=== PATIENT | male | born 1945 | race Caucasian/White ===

== ENCOUNTER 2024-04-10 16:25 | Emergency (ER) | payer OTHER ==
[~2024-04-10] VITALS: Ht 182.9 cm; Wt 100.0 kg
[2024-04-10] MEDS: ONDANSETRON ODT 4 MG TAB PO ONE (19:10)
[2024-04-10] MEDS: MORPHINE SULFATE INJ 2 MG/ml SYRG IM ONE (19:10)
[2024-04-10 19:47] VITALS: BP 170/86; PULSE 69; RESP 17; TEMP 97.7; O2SAT 96
[2024-04-10] MEDS ORDERED: ACE3T PO (19:50)
== END 2024-04-10 20:34 | disposition home or self-care (01) ==
LOC: EDBD 16:25 → ER 16:25
DX: S29.012A Strain of muscle and tendon of back wall of thorax, initial encounter (principal); I10 Essential (primary) hypertension; Z88.2 Allergy status to sulfonamides; V49.9XXA Car occupant (driver) (passenger) injured in unspecified traffic accident, initial encounter; Y93.89 Activity, other specified; Y92.488 Other paved roadways as the place of occurrence of the external cause; Y99.8 Other external cause status
CPT/HCPCS: 72128; 96372; 99285; J2270; Q0162; 93005

== ENCOUNTER 2025-01-18 15:40 | Emergency (ER) | payer OTHER ==
[~2025-01-18] VITALS: Ht 167.6 cm; Wt 91.0 kg
[~2025-01-18 15:40] MED LIST: ACE3T PO
--- NOTE | 2025-01-18 15:50 | ED.PDOC ---
HPI Comments 79-year-old male with PMHx HTN, Arthritis brought in by EMS presents with a chief complaint of chest pain. Patient states that his pain is localized to his left chest region, nonradiating, describes sharp, and is intermittent in timing. Patient mentions that he felt this pain 3 times yesterday, but it subsided on its own. Patient denies having any known cardiac history including Angina or MD. No other symptoms or modifying factors present at this time. Patient currently denies any specific chest pain. Chief Complaint: Chest Pain Time Seen by MD: 15:44 Primary Care Provider: ANA PAULA Wallace Notes: Grocery Department Manager Notes, Medications, Allergies Allergies: Coded Allergies: Sulfa Antibiotics (Verified Allergy, Unknown, 04/10/24) Home Meds Active Scripts Acetaminophen W/ Codeine (Tylenol W/Cod #3) 1 Tab Tb, 1 TAB PO Q6HPRN, #10 TAB 0 Refills Prov:AGUILARCLAYTON WALTER 04/10/24 Information Source: Patient, Emergency Med Personnel Mode of Arrival: EMS Severity: Moderate Timing: Days Duration: Intermittent Prehospital treatment: 12 Lead EKG, Hot Car Charger Location: Chest (L) Radiation: No Radiation Quality: Sharp Onset: At Rest Cardiac Risk Factors: HTN PE Risk Factors: None History of: Similar pain in past Past Medical History PAST MEDICAL HISTORY: Arthritis, HTN Surgical History: Denies all surgeries Family History Family History: Reviewed,noncontributory to illness Social History Smoker: Non-Smoker Alcohol: Occasionally Drugs: Denies Drug Use Lives In: Home Constitutional: denies: chills, diaphoresis, fatigue, fever, malaise, sweats, weakness, others EENTM: denies: blurred vision, double vision, ear bleeding, ear discharge, ear drainage, ear pain, ear ringing, eye pain, eye redness, hearing loss, mouth pain, mouth swelling, nasal discharge, nose bleeding, nose congestion, nose pain, photophobia, tearing, throat pain, throat swelling, voice changes, others Respiratory: denies: cough, hemoptysis, orthopnea, SOB at rest, shortness of breath, SOB with excertion, stridor, wheezing, others Cardiovascular: reports: chest pain; denies: dizzy spells, diaphoresis, Dyspnea on exertion, edema, irregular heart beat, left arm pain, lightheadedness, palpitations, PND, syncope, others Gastrointestinal: denies: abdomen distended, abdominal pain, blood streaked bowels, constipated, diarrhea, dysphagia, difficulty swallowing, hematemesis, melena, nausea, poor appetite, poor fluid intake, rectal bleeding, rectal pain, vomiting, others Genitourinary: denies: burning, dysuria, flank pain, frequency, hematuria, i ncontinence, penile discharge, penile sore, pain, testicle pain, testicle swelling, urgency, others Neurological: denies: dizziness, fainting, headache, left sided numbness, left sided weakness, numbness, paresthesia, pre-existing deficit, right sided numbness, right sided weakness, seizure, speech problems, tingling, tremors, weakness, others Musculoskeletal: denies: back pain, gout, joint pain, joint swelling, muscle pain, muscle stiffness, neck pain, others Integumetry: denies: bruises, change in color, change in hair/nails, dryness, laceration, lesions, lumps, rash, wounds, others Allergic/Immunocompromised: denies: Difficulty Healing, Frequent Infections, Hives, Itching, others Hematologic/Lymphatic: denies: anemia, blood clots, easy bleeding, easy bruising, swollen glands, others Endocrine: denies: excessive hunger, excessive sweating, excessive thirst, excessive urination, flushing, intolerance to cold, intolerance to heat, unexplained weight gain, unexplained weight loss, others Psychiatric: denies: anxiety, bipolar disorder, depression, hopeless, panic disorder, schizophrenia, sleepless, suicidal, others All Other Systems: Reviewed and Negative Physical Exam General Appearance: No Apparent Distress (Patient was in no definitive distress at time of evaluation.), Normal HEENT: Normal ENT Inspection, Pharynx Normal, TMs Normal Neck: Full Range of Motion, Non-Tender, Normal, Normal Inspection Respiratory: Chest Non-Tender, Lungs Clear, No Accessory Muscle Use, No Respiratory Distress, Normal Breath Sounds Cardiovascular: No Edema, No JVD, No Murmur, No Gallop, Normal Peripheral Pulses, Regular Rate/Rhythm Breast Exam: Deferred Gastrointestinal: No Organomegaly, Non Tender, No Pulsatile Mass, Normal Bowel Sounds, Soft Genitalia: Deferred Pelvic: Deferred Rectal: Deferred Extremities: No calf tenderness, Normal capillary refill, Normal inspection, Normal range of motion, Non-tender, No pedal edema Musculoskeletal : Apperance: Normal Neurologic: Alert, No Motor Deficits, Normal Affect, Normal Mood, No Sensory Deficits Cerebellar Function: Normal Reflexes: Normal Skin: Dry, Normal Color, Warm Lymphatic: No Adenopathy Was a procedure done? Was a procedure done?: No CP Differential Dx Differential Diagnosis: A-fib, A-Flutter, Anxiety / Panic Attack, Atrial Dysrhythmia, AV Block 1st Degree, MD Differential Diagnosis: Angina X-Ray, Labs, Meds, VS Vital Signs Date Time Temp Pulse Resp B/P (MAP) Pulse Ox O2 Delivery O2 Flow Rate FiO2 01/18/25 17:43 97.9 55 17 157/67 (97) 98 97.9 01/18/25 15:48 98.6 63 18 149/84 (105) 97 98.6 01/18/25 15:40 57 Lab Test 01/18/25 16:55 01/18/25 15:55 Range/Units Troponin I High Sensitivity 3 L < 3 L </=54 ng/L White Blood Count 6.5 4.4-10.8 10^3/uL Red Blood Count 4.60 4.5-5.90 10^6/uL Hemoglobin 13.8 13.5-17.5 g/dL Hematocrit 40.2 L 41.0-53.0 % Mean Corpuscular Volume 87.5 80.0-100.0 fL Mean Corpuscular Hemoglobin 30.1 28.0-32.0 pg Mean Corpuscular Hemoglobin Concent 34.4 32.0-36.0 g/dL Red Cell Distribution Width 13.7 11.8-14.3 % Platelet Count 215 140-450 10^3/uL Mean Platelet Volume 8.2 6.9-10.8 fL Neutrophils (%) (Auto) 70.9 37.0-80.0 % Lymphocytes (%) (Auto) 12.5 10.0-50.0 % Monocytes (%) (Auto) 10.3 0.0-12.0 % Eosinophils (%) (Auto) 4.0 0.0-7.0 % Basophils (%) (Auto) 2.3 H 0.0-2.0 % Neutrophils # (Auto) 4.6 1.6-8.6 10 ^3/uL Lymphocytes # (Auto) 0.8 0.4-5.4 10 ^3/uL Monocytes # (Auto) 0.7 0-1.3 10 ^3/uL Eosinophils # (Auto) 0.3 0-0.8 10 ^3/uL Basophils # (Auto) 0.1 0-0.2 10 ^3/uL Nucleated Red Blood Cells 0.1 % D-Dimer, Quantitative 3.21 H 0.0-0.49 mg/L FEU Sodium Level 142 136-145 mmol/L Potassium Level 4.0 3.5-5.1 mmol/L Chloride Level 108 H 98-107 mmol/L Carbon Dioxide Level 25 20-31 mmol/L Anion Gap 9 5-15 Blood Urea Nitrogen 17 9-23 mg/dL Creatinine 1.23 0.700-1.30 mg/dL Glomerular Filtration Rate Calc 60 >90 mL/min BUN/Creatinine Ratio 13.8 10.0-20.0 Serum Glucose 92 74-106 mg/dL Calcium Level 10.1 8.7-10.4 mg/dL Total Bilirubin 0.9 0.2-1.0 mg/dL Aspartate Amino Transferase (AST) 19 13-40 U/L Alanine Aminotransferase (ALT) 16 7-40 U/L Alkaline Phosphatase 112 46-116 U/L B-Type Natriuretic Peptide 110.86 0-100 pg/mL Total Protein 6.9 5.7-8.2 g/dL Albumin 4.4 3.2-4.8 g/dL X-Ray, Labs, Meds, VS Comment All studies performed the ED were evaluated by me personally. Serum studies were relatively unremarkable other than an elevated D-dimer. Patient received a CT angio to rule out any PE formation. CT angio was unremarkable for any pulmonary emboli or intrapulmonary concerns. EKG showed a sinus rhythm with a rate of 57. PA interval of 199 and QT interval 442. Unremarkable cardiac evaluation today. Advised patient to follow up with his primary care provider for discussions related to his recurrent chest pain concerns. Time of 1ST Reevaluation: 19:45 Reevaluation 1ST: Improved Consultation: PCP, Cardiology Patient Education/Counseling: Diagnosis, Treatment, Need For Follow Up Family Education/Counseling: Diagnosis, Treatment, No Family Present SEPSIS Sepsis Screen Recent Procedure: No On Antibiotic Therapy: No Respiratory Rate >20: No Heart Rate >90: No Temp<36 C (96.8 F) or >38.3 C: No SBP <90 or MAP <65 mmHG: No New Acute Mental Status Change: No Is the patient on CPAP, BIPAP,: No Physician Orders Electrocardigram (01/18/25 16:47) Electrocardigram (01/18/25 18:47) Heplock Iv (01/18/25 ) Ct Angio Chest Contrast (01/18/25 17:23) Vital Signs Date Time Temp Pulse Resp B/P (MAP) Pulse Ox O2 Delivery O2 Flow Rate FiO2 01/18/25 17:43 97.9 55 17 157/67 (97) 98 97.9 01/18/25 15:48 98.6 63 18 149/84 (105) 97 98.6 01/18/25 15:40 57 Laboratory Tests Test 01/18/25 15:55 White Blood Count 6.5 10^3/uL (4.4-10.8) Departure 1 Departure Time of Disposition: 19:46 Impression: Primary Impression: Chest pain Disposition: HOME / SELF CARE / HOMELESS Condition: Stable Additional Instructions: Advised patient follow up with his primary care provider for discussions related to today's visit and possible cardiac referral and evaluation. Discharged With: Self, Friend Critical Care Note Critical Care Time?: No Stability Stability form required: No Heart Score Heart Score: Heart Score Response (Comments) Value History Slightly Suspicious 0 EKG Normal 0 Age >65 2 Risk Factors 1 or 2 risk factors 1 Troponin Normal limit 0 Total 3 I personally scribed for JARROD HUSSEIN PAC ([email or web address]) on 01/18/25 at 15:50. Electronically submitted by Trent Barker ([email or web address]). JARROD HUSSEIN PAC Jan 18, 2025 15:50
[2025-01-18 16:14] LABS: Hematocrit 40.2 % (41.0-53.0); Hemoglobin 13.8 g/dL (13.5-17.5); Mean Corpuscular Hemoglobin 30.1 pg (28.0-32.0); Mean Corpuscular Volume 87.5 fL (80.0-100.0); Nucleated Red Blood Cells % 0.1 %
[2025-01-18 16:29] LABS: Alanine Aminotransferase 16 U/L (7-40); Albumin 4.4 g/dL (3.2-4.8); Alkaline Phosphatase 112 U/L (46-116); Anion Gap 9 (5-15); BUN/Creatinine Ratio 13.8 (10.0-20.0); Blood Urea Nitrogen 17 mg/dL (9-23); Calcium 10.1 mg/dL (8.7-10.4); Carbon Dioxide 25 mmol/L (20-31); Glucose 92 mg/dL (74-106); Potassium 4.0 mmol/L (3.5-5.1); Sodium 142 mmol/L (136-145); Total Protein 6.9 g/dL (5.7-8.2)
[2025-01-18 16:30] LABS: Bilirubin, Total 0.9 mg/dL (0.2-1.0)
[2025-01-18 16:31] LABS: Chloride 108 mmol/L (98-107)
[2025-01-18] MEDS: IOHEXOL 350 MG/ML 100ML IJ ONE (18:42)
--- NOTE | 2025-01-18 18:54 | ECG ---
[facility] Test Date: 2025-01-18 Test Time: 15:37:22 Pat Name: CHERI AGUDELO Department: ED Room: Gender: M Senior Net Software Engineer: [email or web address] : [id number] Requested By: JARROD HUSSEIN Order Number: [id number] Reading MD: Measurements Intervals [place] Rate: 57 P: 23 CO: 199 QRS: -4 QRSD: 109 T: 30 QT: 442 QTc: 431 Interpretive Statements Sinus rhythm Please click the below link to view image of tracing.
--- NOTE | 2025-01-18 19:33 | DVH ---
EXAM: CT CT ANGIO CHEST CONTRAST History: Elevated D-dimer Comparison Study: None TECHNIQUE: A digital roll over press operator image was obtained. During the uneventful, intravenous administration of c ontrast material, multislice data acquisition was obtained through the chest. 3-D postprocessing is performed by technologist including MIP imaging Radiation Dose : CTDI vol 26.64 mGy, DLP 954.66 mGy*cm. Findings: Lungs: The lungs are clear. Pleura: Unremarkable Heart/Great vessels: No cardiomegaly or pericardial effusion. No pulmonary embolism or aneurysm. Mediastinum: Small hiatal hernia. Unremarkable Soft tissues/Bones: Unremarkable Cholelithiasis without evidence of acute cholecystitis. Impression: 1. No evidence of a pulmonary embolism or aneurysm.
[2025-01-18 19:52] VITALS: BP 156/77; PULSE 54; RESP 16; TEMP 97.6; O2SAT 98
== END 2025-01-18 20:00 | disposition home or self-care (01) ==
LOC: EDUNIT# 15:40 → EDBD 15:40 → ER 15:47
DX: R07.89 Other chest pain (principal); F10.90 Alcohol use, unspecified, uncomplicated; M19.90 Unspecified osteoarthritis, unspecified site; I10 Essential (primary) hypertension; Z88.2 Allergy status to sulfonamides; Z79.899 Other long term (current) drug therapy; Y90.9 Presence of alcohol in blood, level not specified
CPT/HCPCS: 36415; 71275; 80053; 83880; 84484; 85025; 85379; 93005; 99285; Q9967